=== PATIENT | female | born 1970 | race Caucasian/White ===

== ENCOUNTER 2020-10-26 09:16 | Emergency (ER) | payer MEDICAID, SELFPAY ==
[2020-10-26 09:24] VITALS: BP 121/79; PULSE 98; RESP 24; TEMP 36.9; O2SAT 98; BMI 36.0
[2020-10-26 09:53] VITALS: BP 114/68; PULSE 101; RESP 15; O2SAT 94
[2020-10-26 10:01] LABS: Basophils # 0.1 10^3/uL (0.0-0.1); Basophils % 0.7 %; Eosinophils # 0.1 10^3/uL (0.0-0.8); Eosinophils % 0.6 %; Hematocrit 41.9 % (42.0-52.0); Hemoglobin 13.5 g/dL (11.7-16.6); Lymphocytes # 2.4 10^3/uL (0.8-4.8); Lymphocytes % 28.3 %; Mean Corpuscular HGB Conc 32.2 g/dL (30.0-36.0); Mean Corpuscular Hemoglobin 25.5 pg (28.0-34.0); Mean Corpuscular Volume 79.1 fL (80-94); Mean Platelet Volume 8.8 fL (7.4-10.4); Monocytes # 0.4 10^3/uL (0.2-0.9); Monocytes % 5.3 %; Neutrophils # 5.43 10^3/uL (1.8-7.7); Neutrophils % 64.7 %; Nucleated Red Blood Cells % 0 %; Platelet Count 401 10^3/cmm (130-400); Red Cell Distribution Width 16.4 % (12.1-15.1); White Blood Count 8.4 10^3/uL (4.0-10.0)
--- NOTE | 2020-10-26 10:06 | CTR_ITS ---
PROCEDURE INFORMATION: Exam: CT Abdomen And Pelvis With Contrast Exam date and time: 10/26/2020 10:06 AM Age: 49 years old Clinical indication: Nausea and vomiting; Additional info: Vomiting, diffuse pain, HX sbo TECHNIQUE: Imaging protocol: Computed tomography of the abdomen and pelvis with contrast. Radiation optimization: All CT scans at this facility use at least one of these dose optimization techniques: automated exposure control; mA and/or kV adjustment per patient size (includes targeted exams where dose is matched to clinical indication); or iterative reconstruction. Contrast material: OMNIPAQUE 300; Contrast volume: 95 ml; Contrast route: INTRAVENOUS (IV); COMPARISON: No relevant prior studies available. RADIATION DOSE METRICS: Total DLP (mGy-cm): 1667.97 FINDINGS: Liver: Normal. No mass. Gallbladder and bile ducts: Cholecystectomy. Normal bile ducts. Pancreas: Normal. No ductal dilation. Spleen: Normal. No splenomegaly. Adrenal glands: Normal. No mass. Kidneys and ureters: Normal. No hydronephrosis. Stomach and bowel: Unremarkable. No obstruction. No mucosal thickening. Appendix: No evidence of appendicitis. Intraperitoneal space: Unremarkable. No free air. No significant fluid collection. Vasculature: Unremarkable. No abdominal aortic aneurysm. Lymph nodes: Unremarkable. No enlarged lymph nodes. Urinary bladder: Unremarkable as visualized. Reproductive: Hysterectomy. Bones/joints: Unremarkable. No acute fracture. Soft tissues: Unremarkable. CT/CT abdomen pelvis w con* [id number] IMPRESSION: No acute abnormalities are seen in the abdomen and pelvis. Radiation Dose CTDIVOL = (mGy): DLP = 1667.97 (mGy-cm)
[2020-10-26 10:16] LABS: Add Urine Culture? No; Bacteria Urine TRACE /hpf; Bilirubin Urine Neg (Negative); Blood Urine Neg (Negative); Glucose Urine UA Norm (Normal); Ketones Urine Negative (Negative); Leukocyte Esterase Urine Negative (Negative); Mucus Urine 1+ /hpf; Nitrate Urine Negative (Negative); Protein Urine Neg (Negative); Specific Gravity, Urine 1.015 (1.005-1.030); Squamous Epithelial Cell Urine 0-4 /hpf (0-5); Sulfosalicylic Acid Urine Negative (Negative); Urine Appearance Clear (CLEAR); Urine Color Yellow (Yellow); Urobilinogen Urine Norm (Negative); WBC Urine 0-4 /hpf (0-5); pH Urine 9 (5-7)
[2020-10-26 10:19] LABS: Alanine Aminotransferase 20 U/L (0-41); Albumin Level 4.4 g/dL (3.5-5.2); Alkaline Phosphatase 105 IU/L (40-130); Anion Gap 20.2 (5-19); Aspartate Amino Transferase 16 U/L (0-40); Blood Urea Nitrogen 18 mg/dL (6-20); Calcium 9.1 mg/dL (8.5-10.5); Carbon Dioxide 23 mmol/L (22-29); Chloride 104 mmol/L (98-107); Globulin 2.9 g/dL (1.3-4.6); Glomerular Filtration Rate 103.6 mL/min (90-130); Glucose 164 mg/dL (65-115); Lipase 28 U/L (13-60); Osmolality Calculated 302 mOsm/kg (285-295); Potassium 4.2 mmol/L (3.5-5.1); Sodium 143 mmol/L (136-145); Total Bilirubin 0.2 mg/dL (0.15-1.2); Total Protein 7.3 g/dL (6.6-8.7)
[2020-10-26] MEDS: ondansetron 2 mg/ML SDV 2 mL 8 MG IVP (10:25)
[2020-10-26 10:26] VITALS: BP 124/80; PULSE 106; RESP 18; O2SAT 97
[2020-10-26] MEDS: sodium chloride 0.9% 1,000 ML 999 ML IV (10:26)
[2020-10-26] MEDS: iohexol 300 mg/mL 100 mL Btl IV (10:48)
[2020-10-26] MEDS: HYDROmorphone 1 mg/mL INJ 1 mL IVP (11:16)
[2020-10-26 11:17] VITALS: BP 119/82; PULSE 99; RESP 16; O2SAT 100
--- NOTE | 2020-10-26 12:01 | ED_ITS ---
HPI - Abdominal Pain General: Chief Complaint: Abdominal Pain Stated Complaint: n/v Time Seen by Provider: 10/26/20 09:43 History of Present Illness: HPI narrative: 49-year-old female who woke up at 6:00 this morning with profuse vomiting and diffuse abdominal pain. She did eat at a [place] restaurant last night had a couple of beers but felt fine. She is had no diarrhea. She has had numerous abdominal surgeries including adhesiolysis and previous small bowel obstructions she says it does feel similar to that. She denies any fevers she has had cholecystectomy appendectomy 4 C- sections Course Vital Signs: Vital signs: Vital Signs Temperature 98.4 F 10/26/20 09:24 Pulse Rate 99 10/26/20 11:17 Respiratory Rate 16 10/26/20 11:17 Blood Pressure 119/82 10/26/20 11:17 Pulse Oximetry 100 10/26/20 11:17 MDM - Abdominal Pain MDM Narrative: Medical decision making narrative: Patient does have a history of small bowel obstructions obtain a CT scan and this was negative. Her laboratory work was unremarkable she continued continue to have some mild abdominal cramping she says Compazine makes her real jittery. She tolerated the Reglan well. She is requesting a second dose of pain medication she tolerated Sprite and water in the emergency department we will discharge her with Zofran and with some Bentyl Medical Records: Attestation: I reviewed the patient's medical records. Lab Data: Attestation: I reviewed the patient's lab results. Labs: Lab Results 10/26/20 10/26/20 10/26/20 Range/Units 09:37 09:50 09:50 WBC 8.4 (4.0-10.0) 10^3/ uL RBC 5.30 (4.1-5.3) 10^6/u L Hgb 13.5 (11.7-16.6) g/dL Hct 41.9 L (42.0-52.0) % MCV 79.1 L (80-94) fL MCH 25.5 L (28.0-34.0) pg MCHC 32.2 (30.0-36.0) g/dL RDW 16.4 H (12.1-15.1) % Plt Count 401 H (130-400) 10^3/c mm MPV 8.8 (7.4-10.4) fL Neut % (Auto) 64.7 % Lymph % (Auto) 28.3 % [place] % (Auto) 5.3 % Eos % (Auto) 0.6 % Baso % (Auto) 0.7 % Neut # (Auto) 5.43 (1.8-7.7) 10^3/u L Lymph # (Auto) 2.4 (0.8-4.8) 10^3/u L [place] # (Auto) 0.4 (0.2-0.9) 10^3/u L Eos # (Auto) 0.1 (0.0-0.8) 10^3/u L Baso # (Auto) 0.1 (0.0-0.1) 10^3/u L Nucleated RBC % (a uto) 0 % Nucleated RBCs # 0.0 /100WBC Sodium 143 (136-145) mmol/L Potassium 4.2 (3.5-5.1) mmol/L Chloride 104 (98-107) mmol/L Carbon Dioxide 23 (22-29) mmol/L Anion Gap 20.2 H (5-19) BUN 18 (6-20) mg/dL Creatinine 0.8 (0.7-1.2) mg/dL GFR Calculation 103.6 (90-130) mL/min Glucose 164 H (65-115) mg/dL Calculated Osmolal ity 302 H (285-295) mOsm/k g Calcium 9.1 (8.5-10.5) mg/dL Total Bilirubin 0.2 (0.15-1.2) mg/dL AST 16 (0-40) U/L ALT 20 (0-41) U/L Alkaline Phosphata se 105 (40-130) IU/L Total Protein 7.3 (6.6-8.7) g/dL Albumin 4.4 (3.5-5.2) g/dL Globulin 2.9 (1.3-4.6) g/dL Lipase 28 (13-60) U/L Urine Color Yellow (Yellow) Urine Appearance Clear (CLEAR) Urine pH 9 H (5-7) Ur Specific Gravit y 1.015 (1.005-1.030) Urine Protein Neg (Negative) Urine Glucose (UA) Norm (Normal) Urine Ketones Negative (Negative) Urine Blood Neg (Negative) Urine Nitrate Negative (Negative) Urine Bilirubin Neg (Negative) Prot Sulfosalicyli c Acd Negative (Negative) Urine Urobilinogen Norm (Negative) mg/dL Ur Leukocyte Lanette ase Negative (Negative) Urine RBC None (0-2) /hpf Urine WBC 0-4 H (0-5) /hpf Ur Squamous Epith Cells 0-4 H (0-5) /hpf Amorphous Sediment Not Reportable Urine Bacteria Trace (NONE) /hpf Urine Mucus 1+ /hpf Discharge Plan Discharge Patient Disposition: Home Clinical Impression: Abdominal pain Qualifiers: Abdominal location: generalized Qualified Code(s): R10.84 - Generalized abdominal pain Vomiting Qualifiers: Vomiting type: unspecified Vomiting Intractability: non-intractable Nausea presence: with nausea Qualified Code(s): R11.2 - Nausea with vomiting, unspecified Condition: Stable Prescriptions: New dicyclomine 20 mg tablet 20 mg PO QID Qty: 20 RF: 0 ondansetron 8 mg tablet,disintegrating 8 mg PO DAILY 3 Days Qty: 12 RF: 0 Discharge Orders: Discharge ED (Routine); Ordered 10/26/20 Ordered By: Angela Fraga Discharge Diet: Advance as tolerated and Clear Liquid Patient Instructions: Abdominal Pain (ED) Activity Restrictions/Additional Instructions: Use the Zofran half tablet to 1 tablet 6 to 8 hours as needed for nausea vomiting. The dicyclomine is for abdominal cramping. Recommend clear liquids for the next 12 to 24 hours you can advance as tolerated Return the emergency department if increased pain fevers worsening or changes in symptoms Stand Alone Forms: Work/School Release Coding Level of Care Code ED Academic Guidance Specialist for Forrest Ochoa
[2020-10-26] MEDS: metoclopramide 5 mg/mL SDV 2 mL 10 MG IVP (12:57)
[2020-10-26 13:50] VITALS: RESP 14
[2020-10-26] MEDS: HYDROmorphone 1 mg/mL INJ 1 mL IM (13:50)
[2020-10-26 14:10] VITALS: BP 137/77; PULSE 97; RESP 14; O2SAT 97
== END 2020-10-26 14:08 | disposition home or self-care (01) ==
PROVIDERS: Emergency Provider Emergency Medicine
DX: R10.84 Generalized abdominal pain (principal); R11.2 Nausea with vomiting, unspecified
CPT/HCPCS: 74177; 80053; 81001; 83690; 85025; 96361; 96372; 96374; 96375; 99284; J1170; J2405; J2765; J7030; Q9967